=== PATIENT | male | born 1980 | race Caucasian/White ===

== ENCOUNTER 2017-09-20 01:47 | Inpatient (IN) | payer SELFPAY ==
[2017-09-20] VITALS (7 sets, daily range): BP systolic 116–175; BP diastolic 60–84; PULSE 75–91; RESP 16–19; TEMP 97.4–98.2; O2SAT 95–100
[~2017-09-20] VITALS: Ht 165.1 cm; Wt 87.0 kg
--- NOTE | 2017-09-20 04:52 | PD ---
HPI Chief Complaint: Flank/Kidney Pain Time Seen by Provider: 04:47 Travel History International Travel<30 days: No Contact w/Intl Traveler<30days: No Traveled to known affect area: No History of Present Illness HPI 37-year-old male presents to the emergency department by private transportation for complaint of left-sided abdominal pain and right lower quadrant abdominal pain for 3-4 days. No reported fever chills nausea vomiting hematemesis coffee- ground emesis melena hematochezia. Patient denies history of kidney stones. Patient admits to substance use and last alcohol use was 1 week ago. Patient is unable to identify exacerbating or alleviating factors. Patient notes his abdomen is tender and he knows that palpating the area does make the area more sensitive but he does not know other precipitating factors. Patient is taken no medication for symptom relief. Patient takes no routine medications or prescription medications. Patient denies any previous surgeries. No report of respiratory illness chest pain or shortness of breath. PFSH Past Medical History Narrative Medical Left hand surgery; alcohol use tobacco use substance use; nursing notes reviewed Tetanus Vaccination: Unknown Past Surgical History Other Surgery: Yes (L hand ) Social History Alcohol Use: Yes (rarely) Tobacco Use: Yes (1/2 PPD) Substance Use: Yes (Marijuana, Hx Heroin 2 months clean) Allergies-Medications (Allergen,Severity, Reaction): Coded Allergies: No Known Drug Allergies (Verified Allergy, Unknown, 09/20/17) Narrative Medication Denies medication use or prescription medications Review of Systems Except as stated in HPI: all other systems reviewed are Neg General / Constitutional: No: Fever, Chills HENT: No: Congestion Cardiovascular: No: Chest Pain or Discomfort Respiratory: No: Shortness of Breath Gastrointestinal: Positive: Abdominal Pain, No: Nausea, Diarrhea Genitourinary: Positive: Flank Pain Musculoskeletal: No: Myalgias, Arthralgias Skin: No Rash Neurologic: No: Weakness, Dizziness Psychiatric: No: Anxiety Hematologic/Lymphatic: No: Lymph Node Enlargement Physical Exam Narrative GENERAL: Well-developed well-nourished male no acute distress no respiratory distress SKIN: Warm and dry. HEAD: Normocephalic. EYES: No scleral icterus. No injection or drainage. NECK: Supple, trachea midline. No JVD or lymphadenopathy. CARDIOVASCULAR: Regular rate and rhythm without murmurs, gallops, or rubs. RESPIRATORY: Breath sounds equal bilaterally. No accessory muscle use. GASTROINTESTINAL: Abdomen soft, bilateral lower quadrant tenderness to palpation and left flank tender, nondistended. MUSCULOSKELETAL: No cyanosis, or edema. BACK: Nontender without obvious deformity. Left CVA tenderness. Data Data Last Documented VS Vital Signs Date Time Temp Pulse Resp B/P (MAP) Pulse Ox O2 Delivery O2 Flow Rate FiO2 09/20/17 07:45 81 18 146/81 (102) 98 Room Air 09/20/17 01:54 97.4 Orders Orders Complete Blood Count With Diff (09/20/17 04:48) Comprehensive Metabolic Panel (09/20/17 04:48) Lipase (09/20/17 04:48) Urinalysis - C+S If Indicated (09/20/17 04:48) Iv Access Insert/Monitor (09/20/17 04:48) Ecg Monitoring (09/20/17 04:48) Oximetry (09/20/17 04:48) Sodium Chloride 0.9% Flush (Ns Flush) (09/20/17 05:00) Drug Screen, Random Urine (09/20/17 04:48) Magnesium (Mg) (09/20/17 04:48) Sodium Chlor 0.9% 1000 Ml Inj (Ns 1000 M (09/20/17 05:00) Ct Abd/Pel W/O Iv Contrast (09/20/17 04:48) Sodium Chlor 0.9% 1000 Ml Inj (Ns 1000 M (09/20/17 07:45) Admit To Inpatient (09/20/17 ) Vital Signs (Adult) Q4H (09/20/17 08:11) Activity Oob With Assistance (09/20/17 08:11) Intake + Output VANESSA.QSHIFT (09/20/17 08:11) Sodium Chlor 0.9% 1000 Ml Inj (Ns 1000 M (09/20/17 08:11) Sodium Chloride 0.9% Flush (Ns Flush) (09/20/17 08:15) Sodium Chloride 0.9% Flush (Ns Flush) (09/20/17 09:00) Acetaminophen (Tylenol) (09/20/17 08:15) Metoclopramide Inj (Reglan Inj) (09/20/17 08:15) Basic Metabolic Panel (Bmp) (09/21/17 06:00) Complete Blood Count With Diff (09/21/17 06:00) Resp Oxygen Justyn C Titrat 1-4 L (09/20/17 ) Pt Request For Service (09/20/17 08:11) Case Management Consult (09/20/17 08:11) Scd Bilateral/Knee High VANESSA.BID (09/20/17 08:11) Basil Bilateral/Knee High VANESSA.QSHIFT (09/20/17 08:11) Naloxone Inj (Narcan Inj) (09/20/17 08:15) Docusate Sodium-Senna (Abigail-Colace) (09/20/17 09:00) Magnesium Hydroxide Liq (Milk Of Magnesi (09/20/17 08:15) Sennosides (Senokot) (09/20/17 08:15) Bisacodyl Supp (Dulcolax Supp) (09/20/17 08:15) Lactulose Liq (Lactulose Liq) (09/20/17 08:15) Inpatient Certification (09/20/17 ) Admit Order (Ed Use Only) (09/20/17 ) Checker Cashier / Telemetry VANESSA.Q8H (09/20/17 08:17) Diet Npo (09/20/17 Breakfast) Activity Bed Rest (09/20/17 08:17) Notify Dr: Other (09/20/17 08:17) Labs Laboratory Tests Test 09/20/17 05:00 09/20/17 06:45 White Blood Count 11.7 TH/MM3 Red Blood Count 6.45 MIL/MM3 Hemoglobin 16.5 GM/DL Hematocrit 51.1 % Mean Corpuscular Volume 79.1 FL Mean Corpuscular Hemoglobin 25.5 PG Mean Corpuscular Hemoglobin Concent 32.3 % Red Cell Distribution Width 17.3 % Platelet Count 211 TH/MM3 Mean Platelet Volume 8.4 FL Neutrophils (%) (Auto) 73.0 % Lymphocytes (%) (Auto) 17.9 % Monocytes (%) (Auto) 8.5 % Eosinophils (%) (Auto) 0.1 % Basophils (%) (Auto) 0.5 % Neutrophils # (Auto) 8.5 TH/MM3 Lymphocytes # (Auto) 2.1 TH/MM3 Monocytes # (Auto) 1.0 TH/MM3 Eosinophils # (Auto) 0.0 TH/MM3 Basophils # (Auto) 0.1 TH/MM3 CBC Comment DIFF FINAL Differential Comment Urine Color YELLOW Urine Turbidity HAZY Urine pH 5.0 Urine Specific [place] 1.015 Urine Protein 30 mg/dL Urine Glucose (UA) TRACE mg/dL Urine Ketones TRACE mg/dL Urine Occult Blood SMALL Urine Nitrite NEG Urine Bilirubin NEG Urine Urobilinogen LESS THAN 2.0 MG/DL Urine Leukocyte Esterase SMALL Urine RBC 31 /hpf Urine WBC 6 /hpf Urine Squamous Epithelial Cells 1 /hpf Urine Bacteria OCC /hpf Urine Hyaline Casts 152 /lpf Urine Granular Casts 14 /lpf Urine Waxy Casts 2 /lpf Urine Mucus FEW /lpf Microscopic Urinalysis Comment CULT NOT INDICATED Urine Opiates Screen POS Urine Barbiturates Screen NEG Urine Amphetamines Screen NEG Urine Benzodiazepines Screen NEG Urine Cocaine Screen POS Urine Cannabinoids Screen POS Blood Urea Nitrogen 62 MG/DL Creatinine 2.61 MG/DL Random Glucose 171 MG/DL Total Protein 9.0 GM/DL Albumin 4.6 GM/DL Calcium Level 8.6 MG/DL Magnesium Level 2.7 MG/DL Alkaline Phosphatase 75 U/L Aspartate Amino Transf (AST/SGOT) 72 U/L Alanine Aminotransferase (ALT/SGPT) 84 U/L Total Bilirubin 1.4 MG/DL Sodium Level 129 MEQ/L Potassium Level 4.3 MEQ/L Chloride Level 86 MEQ/L Carbon Dioxide Level 28.2 MEQ/L Anion Gap 15 MEQ/L Estimat Glomerular Filtration Rate 28 ML/MIN Lipase 132 U/L MDM Medical Decision Making Medical Screen Exam Complete: Yes Emergency Medical Condition: Yes Medical Record Reviewed: Yes Interpretation(s) CBC & BMP Diagram 09/20/17 05:00 09/20/17 06:45 Total Protein 9.0 H, Albumin 4.6, Calcium Level 8.6, Magnesium Level 2.7 H, Alkaline Phosphatase 75, Aspartate Amino Transf (AST/SGOT) 72 H, Alanine Aminotransferase (ALT/SGPT) 84 H, Total Bilirubin 1.4 H Vital Signs Date Time Temp Pulse Resp B/P (MAP) Pulse Ox O2 Delivery O2 Flow Rate FiO2 09/20/17 05:51 88 17 134/84 (101) 96 Room Air 09/20/17 05:33 17 95 Room Air 09/20/17 01:54 97.4 91 16 128/60 (82) 97 Urine drug screen positive for opiates cocaine and cannabinoids Last Impressions Abdomen/Pelvis CT 09/20/17 7598 Signed Impressions: CONCLUSION: 1. 1.4 cm low-density lesion within the left kidney most likely representing a simple cyst however it is incompletely characterized. Ultrasound should be con sidered for further evaluation. 2. No evidence of nephrolithiasis or obstructive uropathy. 3. No evidence of acute process. Differential Diagnosis Abdominal pain, diverticulitis, colitis, atypical appendicitis, renal colic, obstructive uropathy, UTI Narrative Course IV access obtained specimens collected and sent for resulting 1 L normal saline administered Additional liter of normal saline administered White cell count mildly elevated with elevated hemoglobin hematocrit consistent with volume contracture chemistries pending Chemistries resulted patient with elevated BUN and creatinine 62/2.61 with normal bicarb and anion gap mild elevation of serum glucose magnesium and transaminases Urine drug screen is positive for opiates cocaine and cannabis Call placed to [facility] for admission for new onset renal failure renal insufficiency and substance abuse; discussed with Dr. Nieves will admit to her service aware CT abdomen pelvis pending Physician Communication Physician Communication discussed with Dr Nieves =--admit Diagnosis Primary Impression: Abdominal pain Additional Impressions: MELANIE (acute kidney injury) Polysubstance abuse Hyponatremia Admitting Information Admitting Physician Requests: Admit Lety Lugo MD September 20, 2017 04:52
[2017-09-20] MEDS ORDERED: SODIUM CHLORIDE 0.9% FLUSH 10 ML FLUSH IV FLUSH PRN ×2 (05:00→08:15)
[2017-09-20] MEDS ORDERED: SODIUM CHLOR 0.9% 1000 ML INJ 1,000 ML IV ONE ×2 (05:00→07:45)
[2017-09-20 05:16] LABS: AUTOMATED NEUTROPHIL # 8.5 TH/MM3 (1.8-7.7); BASOPHIL # 0.1 TH/MM3 (0-0.2); BASOPHIL % 0.5 % (0.0-2.0); EOSINOPHIL % 0.1 % (0.0-4.0); HEMATOCRIT 51.1 % (39.0-51.0); HEMOGLOBIN 16.5 GM/DL (13.0-17.0); LYMPH % 17.9 % (9.0-44.0); LYMPHOCYTE # 2.1 TH/MM3 (1.0-4.8); MEAN CELL VOLUME 79.1 FL (80.0-100.0); MEAN CORPUSCULAR HEMOGLOBIN 25.5 PG (27.0-34.0); MEAN CORPUSCULAR HGB CONC 32.3 % (32.0-36.0); MEAN PLATELET VOLUME 8.4 FL (7.0-11.0); MONO % 8.5 % (0.0-8.0); PLATELET COUNT 211 TH/MM3 (150-450); RED BLOOD COUNT 6.45 MIL/MM3 (4.50-5.90); RED CELL DISTRIBUTION WIDTH 17.3 % (11.6-17.2); WHITE BLOOD COUNT 11.7 TH/MM3 (4.0-11.0)
[2017-09-20 05:33] LABS: BACTERIA, URINE OCC /hpf; BILIRUBIN, URINE NEG (NEG); BLOOD, URINE SMALL (NEG); GLUCOSE,URINE TRACE mg/dL (NEG); HYALINE CAST, URINE 152 /lpf (RARE); KETONE, URINE TRACE mg/dL (NEG); MUCUS URINE FEW /lpf (OCC); NITRITE,URINE NEG (NEG); SQUAMOUS EPITHELIAL CELL URINE 1 /hpf (0-5); URINE COLOR YELLOW (YELLW/STRAW); URINE LEUKOCYTE ESTERASE SMALL (NEG); WAXY CAST, URINE 2 /lpf
[2017-09-20 07:34] LABS: ALKALINE PHOSPHATASE 75 U/L (45-117); TOTAL BILIRUBIN ADULT 1.4 MG/DL (0.2-1.0)
[2017-09-20 07:35] LABS: ALBUMIN 4.6 GM/DL (3.4-5.0); ALT (GPT) 84 U/L (12-78); AST (GOT) 72 U/L (15-37); BICARBONATE 28.2 MEQ/L (21.0-32.0); BLOOD UREA NITROGEN 62 MG/DL (7-18); CALCIUM 8.6 MG/DL (8.5-10.1); CHLORIDE 86 MEQ/L (98-107); CREATININE 2.61 MG/DL (0.60-1.30); GLOMERULAR FILTRATION RATE 28 ML/MIN (>89); GLUCOSE,RANDOM 171 MG/DL (74-106); MAGNESIUM 2.7 MG/DL (1.5-2.5); SODIUM (NA) 129 MEQ/L (136-145)
[2017-09-20] MEDS ORDERED: LACTULOSE SYRUP 20 GM/30 ML CUP PO PRN (08:15)
[2017-09-20] MEDS ORDERED: BISACODYL 10 MG SUPP RECTAL PRN (08:15)
[2017-09-20] MEDS ORDERED: MAGNESIUM HYDROXIDE SUSP 30 ML CUP PO PRN (08:15)
[2017-09-20] MEDS ORDERED: ACETAMINOPHEN 325 MG TAB PO PRN (08:15)
[2017-09-20] MEDS ORDERED: SENNOSIDES 8.6 MG TAB PO PRN (08:15)
[2017-09-20] MEDS ORDERED: NALOXONE HCL 0.4 MG/ML AMP IV PUSH PRN (08:15)
--- NOTE | 2017-09-20 08:26 | RADRPT ---
EXAM DATE: 09/20/2017 8:01 AM EDT AGE/SEX: 37 years / Male INDICATIONS: Bilateral back/flank pain. CLINICAL DATA: This is the patient's initial encounter. Patient reports that signs and symptoms have been present for 1 week and indicates a pain score of 8/10. MEDICAL/SURGICAL HISTORY: None. None. RADIATION DOSE: 6.96 CTDI (mGy) COMPARISON: No prior [facility] exams available for comparison. TECHNIQUE: Multiple contiguous axial images were obtained through the abdomen. Images were obtained using multiple row detector helical technique. Using dose reduction techniques, radiation dose was ke pt as low as reasonably achievable to obtain optimal diagnostic quality images. FINDINGS: Lower Lungs: The visualized lower lungs are clear. Liver: The liver has a homogeneous density without space-occupying lesion. Benign-appearing central c alcific deposits are identified in the liver. There is no dilation of the biliary tree. Spleen: Homogeneous density without enlargement. Pancreas: Unremarkable without mass or calcification. Kidneys: A low density lesion measuring approximately 1.4 cm is identified in the anterior aspect of the mid left kidney. Kidneys are otherwise unremarkable. There is no evidence of nephrolithiasis or hydronephrosis. Adrenal Glands: Unremarkable. Aorta: The aorta and proximal iliac vessels are grossly unremarkable without aneurysmal dilation. Bowel/Mesentery: The bowel loops are grossly unremarkable. The cecum and sigmoid colon have a normal configuration. Abdominal Wall: Intact. Retroperitoneum: No evidence of adenopathy in the retrocrural, para-aortic, or deep pelvic regions. Bladder: Contours are smooth. Reproductive Organs: No abnormal masses or calcifications seen. Inguinal: The inguinal region is unremarkable without evidence of adenopathy. Bony Structures: Unremarkable. CONCLUSION: 1. 1.4 cm low-density lesion within the left kidney most likely representing a simple cyst however i t is incompletely characterized. Ultrasound should be considered for further evaluation. 2. No evidence of nephrolithiasis or obstructive uropathy. 3. No evidence of acute process. Electronically signed by: Feliciano Heath MD 09/20/2017 8:24 AM EDT
--- NOTE | 2017-09-20 09:22 | HHI.HP ---
[facility] Primary Care Physician No Primary Care Physician Admission Diagnosis abdominal pain; melanie; polysubstance abuse; hyponatremia Diagnoses: Chief Complaint: abd pain Travel History International Travel<30 Days: No Contact w/Intl Traveler <30 Da: No Traveled to Known Affected Are: No History of Present Illness 37-year-old male presents to the emergency department by private transportation for complaint of left-sided abdominal pain and right lower quadrant abdominal pain for 3-4 days. No reported fever chills nausea vomiting hematemesis coffee- ground emesis melena hematochezia. Patient denies history of kidney stones. Patient admits to substance use and last alcohol use was 1 week ago. Patient is unable to identify exacerbating or alleviating factors. Patient notes his abdomen is tender and he knows that palpating the area does make the area more sensitive but he does not know other precipitating factors. Patient is taken no medication for symptom relief. Patient takes no routine medications or prescription medications. Patient denies any previous surgeries. No report of respiratory illness chest pain or shortness of breath. Review of Systems ROS Limitations: Clinical Condition, Intoxication, Poor Historian Except as stated in HPI: all other systems reviewed are Neg Past Family Social History Past Medical History IVDA Past Surgical History Left hand surgery; alcohol use tobacco use substance use; nursing notes reviewed Allergies: Coded Allergies: No Known Drug Allergies (Verified Allergy, Unknown, 09/20/17) Family History healthy family Social History Alcohol Use: Yes (rarely) Tobacco Use: Yes (1/2 PPD) Substance Use: Yes (Marijuana, Hx Heroin 2 months clean). Urine drug screen is positive for opiates cocaine and cannabis on this admission. Physical Exam Vital Signs Vital Signs Date Time Temp Pulse Resp B/P (MAP) Pulse Ox O2 Delivery O2 Flow Rate FiO2 09/20/17 07:45 81 18 146/81 (102) 98 Room Air 09/20/17 05:51 88 17 134/84 (101) 96 Room Air 09/20/17 05:33 17 95 Room Air 09/20/17 01:54 97.4 91 16 128/60 (82) 97 Physical Exam GENERAL: This is a well-nourished, well-developed patient, sleepy. SKIN: No rashes, ecchymoses or lesions. Cool and dry. HEAD: Atraumatic. Normocephalic. No temporal or scalp tenderness. EYES: Pupils equal round and reactive. Extraocular motions intact. No scleral icterus. No injection or drainage. ENT: Nose without bleeding, purulent drainage or septal hematoma. Throat without erythema, tonsillar hypertrophy or exudate. Uvula midline. Airway patent. NECK: Trachea midline. No JVD or lymphadenopathy. Supple, nontender, no meningeal signs. CARDIOVASCULAR: Regular rate and rhythm without murmurs, gallops, or rubs. RESPIRATORY: Clear to auscultation. Breath sounds equal bilaterally. No wheezes , rales, or rhonchi. GASTROINTESTINAL: Abdomen soft, non-tender, nondistended. No hepato-splenomegaly , or palpable masses. No guarding. MUSCULOSKELETAL: Extremities without clubbing, cyanosis, or edema. No joint tenderness, effusion, or edema noted. No calf tenderness. Negative Homans sign bilaterally. NEUROLOGICAL: Awake and alert. Cranial nerves II through XII intact. Motor and sensory grossly within normal limits. Five out of 5 muscle strength in all muscle groups. Normal speech. Laboratory Laboratory Tests Test 09/20/17 05:00 09/20/17 06:45 White Blood Count 11.7 Red Blood Count 6.45 Hemoglobin 16.5 Hematocrit 51.1 Mean Corpuscular Volume 79.1 Mean Corpuscular Hemoglobin 25.5 Mean Corpuscular Hemoglobin Concent 32.3 Red Cell Distribution Width 17.3 Platelet Count 211 Mean Platelet Volume 8.4 Neutrophils (%) (Auto) 73.0 Lymphocytes (%) (Auto) 17.9 Monocytes (%) (Auto) 8.5 Eosinophils (%) (Auto) 0.1 Basophils (%) (Auto) 0.5 Neutrophils # (Auto) 8.5 Lymphocytes # (Auto) 2.1 Monocytes # (Auto) 1.0 Eosinophils # (Auto) 0.0 Basophils # (Auto) 0.1 CBC Comment DIFF FINAL Differential Comment Urine Color YELLOW Urine Turbidity HAZY Urine pH 5.0 Urine Specific [place] 1.015 Urine Protein 30 Urine Glucose (UA) TRACE Urine Ketones TRACE Urine Occult Blood SMALL Urine Nitrite NEG Urine Bilirubin NEG Urine Urobilinogen LESS THAN 2.0 Urine Leukocyte Esterase SMALL Urine RBC 31 Urine WBC 6 Urine Squamous Epithelial Cells 1 Urine Bacteria OCC Urine Hyaline Casts 152 Urine Granular Casts 14 Urine Waxy Casts 2 Urine Mucus FEW Microscopic Urinalysis Comment CULT NOT INDICATED Urine Opiates Screen POS Urine Barbiturates Screen NEG Urine Amphetamines Screen NEG Urine Benzodiazepines Screen NEG Urine Cocaine Screen POS Urine Cannabinoids Screen POS Blood Urea Nitrogen 62 Creatinine 2.61 Random Glucose 171 Total Protein 9.0 Albumin 4.6 Calcium Level 8.6 Magnesium Level 2.7 Alkaline Phosphatase 75 Aspartate Amino Transf (AST/SGOT) 72 Alanine Aminotransferase (ALT/SGPT) 84 Total Bilirubin 1.4 Sodium Level 129 Potassium Level 4.3 Chloride Level 86 Carbon Dioxide Level 28.2 Anion Gap 15 Estimat Glomerular Filtration Rate 28 Lipase 132 Result Diagram: 09/20/17 0500 09/20/17 0645 Imaging Last Impressions Abdomen/Pelvis CT 09/20/17 3351 Signed Impressions: CONCLUSION: 1. 1.4 cm low-density lesion within the left kidney most likely representing a simple cyst however it is incompletely characterized. Ultrasound should be con sidered for further evaluation. 2. No evidence of nephrolithiasis or obstructive uropathy. 3. No evidence of acute process. Caprini VTE Risk Assessment Caprini VTE Risk Assessment: No/Low Risk (score <= 1) Caprini Risk Assessment Model Point Value = 1 Point Value = 2 Point Value = 3 Point Value = 5 Age 41-60 Minor surgery BMI > 25 kg/m2 Swollen legs Varicose veins or History of unexplained or recurrent spontaneous Oral contraceptives or hormone replacement Sepsis (< 1 month) Serious lung disease, including pneumonia (< 1 month) Abnormal pulmonary function Acute myocardial infarction Congestive heart failure (< 1 month) History of inflammatory bowel disease Medical patient at bed rest Age 61-74 Arthroscopic surgery Major open surgery (> 45 min) Laparoscopic surgery (> 45 min) Malignancy Confined to bed (> 72 hours) Immobilizing plaster cast Central venous access Age >= 75 History of VTE Family history of VTE Factor V Leiden Prothrombin [id number] Lupus anticoagulant Anticardiolipin antibodies Elevated serum homocysteine Heparin-induced thrombocytopenia Other congenital or acquired thrombophilia Stroke (< 1 month) Elective arthroplasty Hip, pelvis, or leg fracture Acute spinal cord injury (< 1 month) Prophylaxis Regimen Total Risk Factor Score Risk Level Prophylaxis Regimen 0-1 Low Early ambulation 2 Moderate Order ONE of the following: *Sequential Compression Device (SCD) *Heparin 5000 units SQ BID 3-4 Higher Order ONE of the following medications: *Heparin 5000 units SQ TID *Enoxaparin/Lovenox 40 mg SQ daily (WT < 150 kg, CrCl > 30 mL/min) *Enoxaparin/Lovenox 30 mg SQ daily (WT < 150 kg, CrCl > 10-29 mL/min) *Enoxaparin/Lovenox 30 mg SQ BID (WT < 150 kg, CrCl > 30 mL/min) AND/OR *Sequential Compression Device (SCD) 5 or more Highest Order ONE of the following medications: *Heparin 5000 units SQ TID (Preferred with Epidurals) *Enoxaparin/Lovenox 40 mg SQ daily (WT < 150 kg, CrCl > 30 mL/min) *Enoxaparin/Lovenox 30 mg SQ daily (WT < 150 kg, CrCl > 10-29 mL/min) *Enoxaparin/Lovenox 30 mg SQ BID (WT < 150 kg, CrCl > 30 mL/min) AND *Sequential Compression Device (SCD) Assessment and Plan Assessment and Plan Abdominal pain MELANIE (acute kidney injury) Polysubstance abuse. Counselled. Urine drug screen is positive for opiates cocaine and cannabis Hyponatremia Elevated BUN and creatinine 62/2.61 with normal bicarb and anion gap mild elevation of serum glucose magnesium and transaminases. Urine drug screen is positive for opiates cocaine and cannabis CT A/P reviewed shows 1.4 cm low density lesion left kidney suggesting simple cyst. Start Aggressive IVF at 150 cc /h Monitopr Na closely for overcorrection Monitor kidney function Avoid nephrotoxins DVT ppx ambulation Discussed Condition With pt, nurse ED physician Physician Certification 2 Midnight Certification Type: Admission for Inpatient Services Order for Inpatient Services The services are ordered in accordance with Medicare regulations or non- Medicare payer requirements, as applicable. In the case of services not specified as inpatient-only, they are appropriately provided as inpatient services in accordance with the 2-midnight benchmark. Estimated LOS (days): 3 days is the estimated time the patient will need to remain in the hospital, assuming treatment plan goals are met and no additional complications. Post-Hospital Plan: Home Cynthia Nieves MD September 20, 2017 09:22
[2017-09-20] MEDS: SODIUM CHLORIDE 0.9% FLUSH 10 ML FLUSH IV FLUSH SCH ×2 (09:38→21:00)
[2017-09-20] MEDS: SODIUM CHLOR 0.9% 1000 ML INJ 1,000 ML IV SCH ×3 (09:38→22:51)
[2017-09-20] MEDS: DOCUSATE SODIUM 50 MG/SENNA 8.6 MG TAB PO SCH ×2 (09:38→21:19)
[2017-09-20 10:45] LABS: ALBUMIN 4.3 GM/DL (3.4-5.0); ALKALINE PHOSPHATASE 70 U/L (45-117); ALT (GPT) 74 U/L (12-78); AST (GOT) 57 U/L (15-37); BICARBONATE 28.9 MEQ/L (21.0-32.0); BLOOD UREA NITROGEN 51 MG/DL (7-18); CALCIUM 8.3 MG/DL (8.5-10.1); CHLORIDE 91 MEQ/L (98-107); CREATININE 1.89 MG/DL (0.60-1.30); GLOMERULAR FILTRATION RATE 40 ML/MIN (>89); GLUCOSE,RANDOM 148 MG/DL (74-106); SODIUM (NA) 132 MEQ/L (136-145); TOTAL BILIRUBIN ADULT 1.5 MG/DL (0.2-1.0); TOTAL PROTEIN 8.1 GM/DL (6.4-8.2)
[2017-09-20 13:50] LABS: % SATURATION IRON PROFILE 14.8 % (20-50); IRON (FE) 67 MCG/DL (65-175); TOTAL IRON BINDING CAPACITY 454 MCG/DL (250-450)
[2017-09-20 14:15] LABS: FERRITIN 222 NG/ML (26-388)
[2017-09-20 14:16] LABS: FOLATE GREATER THAN 20.0 NG/ML (3.1-17.5)
[2017-09-20] MEDS: METOCLOPRAMIDE HCL 10 MG/2 ML VIAL IV PUSH PRN (21:19)
[2017-09-21 00:50] VITALS: BP 115/66; PULSE 88; RESP 16; TEMP 97; O2SAT 96
[2017-09-21 03:45] VITALS: BP 112/63; PULSE 80; RESP 18; TEMP 97.3; O2SAT 98
[2017-09-21 04:47] LABS: BASOPHIL % 0.3 % (0.0-2.0); EOSINOPHIL % 0.6 % (0.0-4.0); HEMATOCRIT 41.2 % (39.0-51.0); HEMOGLOBIN 13.5 GM/DL (13.0-17.0); LYMPH % 35.2 % (9.0-44.0); LYMPHOCYTE # 2.6 TH/MM3 (1.0-4.8); MEAN CELL VOLUME 79.2 FL (80.0-100.0); MEAN CORPUSCULAR HEMOGLOBIN 25.9 PG (27.0-34.0); MEAN CORPUSCULAR HGB CONC 32.7 % (32.0-36.0); MEAN PLATELET VOLUME 8.1 FL (7.0-11.0); MONO % 9.6 % (0.0-8.0); MONOCYTE # 0.7 TH/MM3 (0-0.9); NEUT % 54.3 % (16.0-70.0); PLATELET COUNT 164 TH/MM3 (150-450); RED CELL DISTRIBUTION WIDTH 16.8 % (11.6-17.2); WHITE BLOOD COUNT 7.4 TH/MM3 (4.0-11.0)
[2017-09-21 05:06] LABS: BICARBONATE 30.2 MEQ/L (21.0-32.0); CALCIUM 8.4 MG/DL (8.5-10.1); CREATININE 0.93 MG/DL (0.60-1.30)
[2017-09-21] MEDS: SODIUM CHLOR 0.9% 1000 ML INJ 1,000 ML IV SCH ×2 (06:10→11:28)
[2017-09-21 08:22] VITALS: BP 130/70; PULSE 69; RESP 18; TEMP 98; O2SAT 97
[2017-09-21] MEDS: SODIUM CHLORIDE 0.9% FLUSH 10 ML FLUSH IV FLUSH SCH ×2 (09:00→21:00)
[2017-09-21] MEDS: DOCUSATE SODIUM 50 MG/SENNA 8.6 MG TAB PO SCH ×2 (09:46→21:00)
[2017-09-21 11:09] LABS: ALBUMIN 3.2 GM/DL (3.4-5.0); ALKALINE PHOSPHATASE 55 U/L (45-117); ALT (GPT) 59 U/L (12-78); AST (GOT) 49 U/L (15-37); BICARBONATE 29.4 MEQ/L (21.0-32.0); BLOOD UREA NITROGEN 16 MG/DL (7-18); CALCIUM 8.3 MG/DL (8.5-10.1); CHLORIDE 100 MEQ/L (98-107); CREATININE 0.83 MG/DL (0.60-1.30); GLOMERULAR FILTRATION RATE 104 ML/MIN (>89); GLUCOSE,RANDOM 175 MG/DL (74-106); SODIUM (NA) 136 MEQ/L (136-145); TOTAL BILIRUBIN ADULT 1.6 MG/DL (0.2-1.0); TOTAL PROTEIN 6.6 GM/DL (6.4-8.2)
[2017-09-21 11:45] VITALS: BP 118/71; PULSE 70; RESP 18; TEMP 97.9; O2SAT 97
[2017-09-21 16:13] VITALS: BP 140/61; PULSE 58; RESP 18; TEMP 97.5; O2SAT 97
--- NOTE | 2017-09-21 16:57 | HHI.PR ---
Subjective Remarks f/u abd pain still with severe L flank, anterior abdominal wall pain, no fever, no n/v, no diarrhea. Good oral intake Objective Vitals Vital Signs Date Time Temp Pulse Resp B/P (MAP) Pulse Ox O2 Delivery O2 Flow Rate FiO2 09/21/17 16:13 97.5 58 18 140/61 (87) 97 09/21/17 11:45 97.9 70 18 118/71 (87) 97 09/21/17 08:22 98.0 69 18 130/70 (90) 97 09/21/17 03:45 97.3 80 18 112/63 (79) 98 09/21/17 00:50 97.0 88 16 115/66 (82) 96 09/20/17 20:30 98.0 80 16 116/77 (90) 95 09/20/17 18:00 98.2 75 19 123/80 (94) 96 I/O 09/20/17 09/20/17 09/20/17 09/21/17 09/21/17 09/21/17 06:59 14:59 22:59 06:59 14:59 22:59 Intake Total 1000 ml 1711 ml Output Total 1200 ml Balance -200 ml 1711 ml Intake Oral 1000 ml IV Total 1711 ml Output Urine Total 1200 ml # Bowel Movements 0 Result Diagram: 09/21/17 0345 09/21/17 1010 Imaging Last Impressions Abdomen/Pelvis CT 09/20/17 0448 Signed Impressions: CONCLUSION: 1. 1.4 cm low-density lesion within the left kidney most likely representing a simple cyst however it is incompletely characterized. Ultrasound should be con sidered for further evaluation. 2. No evidence of nephrolithiasis or obstructive uropathy. 3. No evidence of acute process. Objective Remarks Not in distress, well-nourished, looks stated age PERRL Normal rate and regular rhythm, no murmurs gallops or rubs appreciated. Clear to auscultation and symmetric bilaterally, normal respiratory effort. Normal bowel sounds, soft, tender on anterior abdominal wall, LLQ superficially and very tender even with superficial palpation Extremities without clubbing, cyanosis, or edema. AAO x3, no cranial nerve deficits, moves all 4 extremities, no focal neurologic deficits A/P Assessment and Plan This is a 37-year-old male presenting with abdominal pain Abdominal pain-CT scan of the abdomen unremarkable other than a small left renal cyst which should not be causing his pain.. Reviewed with Dr. Heath again today, there is nothing in the subcutaneous or anterior abdominal wall. Continue pain control. Acute renal failure-resolved, continue IVF Hyponatremia-resolved Polysubstance abuse-counseled DVT ppx ambulation, low risk Possible discharge tomorrow. Mar Buck MD September 21, 2017 16:57
[2017-09-21] MEDS ORDERED: IBUPROFEN 400 MG TAB PO PRN (17:00)
[2017-09-21] MEDS ORDERED: ACETAMINOPHEN/HYDROcodone 325 MG/10 MG TAB PO PRN (17:00)
[2017-09-21] MEDS ORDERED: NALOXONE HCL 0.4 MG/ML AMP IV PUSH PRN (17:00)
[2017-09-21] MEDS ORDERED: ACETAMINOPHEN/HYDROcodone 325 MG/5 MG TAB PO PRN (17:00)
[2017-09-21] MEDS: METOCLOPRAMIDE HCL 10 MG/2 ML VIAL IV PUSH PRN (18:47)
[2017-09-21 20:00] VITALS: BP 132/63; PULSE 64; RESP 18; TEMP 97.7; O2SAT 98
[2017-09-22 00:49] VITALS: BP 126/63; PULSE 68; RESP 18; TEMP 98.2; O2SAT 97
[2017-09-22 05:21] VITALS: BP 136/79; PULSE 60; RESP 18; TEMP 98.7; O2SAT 98
[2017-09-22 07:56] VITALS: BP 118/70; PULSE 55; RESP 17; TEMP 98.4; O2SAT 99
[2017-09-22] MEDS: DOCUSATE SODIUM 50 MG/SENNA 8.6 MG TAB PO SCH (07:56)
[2017-09-22] MEDS: SODIUM CHLORIDE 0.9% FLUSH 10 ML FLUSH IV FLUSH SCH (07:56)
[2017-09-22] MEDS ORDERED: IBUP1TAB5 PO (09:58)
--- NOTE | 2017-09-22 13:41 | HHI.DS ---
Discharge Summary Admission Date September 20, 2017 at 08:20 Discharge Date: September 22, 2017 Admitting Diagnosis abdominal pain; hal; polysubstance abuse; hyponatremia (1) ARF (acute renal failure) ICD Code: N17.9 - Acute kidney failure, unspecified (2) Abdominal pain ICD Code: R10.9 - Unspecified abdominal pain Procedures none Brief History - From Admission 37-year-old male presents to the emergency department by private transportation for complaint of left-sided abdominal pain and right lower quadrant abdominal pain for 3-4 days. No reported fever chills nausea vomiting hematemesis coffee- ground emesis melena hematochezia. Patient denies history of kidney stones. Patient admits to substance use and last alcohol use was 1 week ago. Patient is unable to identify exacerbating or alleviating factors. Patient notes his abdomen is tender and he knows that palpating the area does make the area more sensitive but he does not know other precipitating factors. Patient is taken no medication for symptom relief. Patient takes no routine medications or prescription medications. Patient denies any previous surgeries. No report of respiratory illness chest pain or shortness of breath. CBC/BMP: 09/21/17 0345 09/21/17 1010 Significant Findings Laboratory Tests Test 09/20/17 05:00 09/20/17 06:45 09/20/17 10:18 09/21/17 03:45 White Blood Count 11.7 TH/MM3 (4.0-11.0) Red Blood Count 6.45 MIL/MM3 (4.50-5.90) Hematocrit 51.1 % (39.0-51.0) Mean Corpuscular Volume 79.1 FL (80.0-100.0) 79.2 FL (80.0-100.0) Mean Corpuscular Hemoglobin 25.5 PG (27.0-34.0) 25.9 PG (27.0-34.0) Red Cell Distribution Width 17.3 % (11.6-17.2) Neutrophils (%) (Auto) 73.0 % (16.0-70.0) Monocytes (%) (Auto) 8.5 % (0.0-8.0) 9.6 % (0.0-8.0) Neutrophils # (Auto) 8.5 TH/MM3 (1.8-7.7) Monocytes # (Auto) 1.0 TH/MM3 (0-0.9) Urine Turbidity HAZY (CLEAR) Urine Protein 30 mg/dL (NEG-TRACE) Urine Ketones TRACE mg/dL (NEG) Urine Occult Blood SMALL (NEG) Urine Leukocyte Esterase SMALL (NEG) Urine RBC 31 /hpf (0-3) Urine WBC 6 /hpf (0-5) Urine Bacteria OCC /hpf (NONE) Urine Mucus FEW /lpf (OCC) Urine Opiates Screen POS (NEG) Urine Cocaine Screen POS (NEG) Urine Cannabinoids Screen POS (NEG) Blood Urea Nitrogen 62 MG/DL (7-18) 51 MG/DL (7-18) 22 MG/DL (7-18) Creatinine 2.61 MG/DL (0.60-1.30) 1.89 MG/DL (0.60-1.30) Random Glucose 171 MG/DL (74-106) 148 MG/DL (74-106) 170 MG/DL (74-106) Total Protein 9.0 GM/DL (6.4-8.2) Magnesium Level 2.7 MG/DL (1.5-2.5) Aspartate Amino Transf (AST/SGOT) 72 U/L (15-37) 57 U/L (15-37) Alanine Aminotransferase (ALT/SGPT) 84 U/L (12-78) Total Bilirubin 1.4 MG/DL (0.2-1.0) 1.5 MG/DL (0.2-1.0) Sodium Level 129 MEQ/L (136-145) 132 MEQ/L (136-145) 135 MEQ/L (136-145) Chloride Level 86 MEQ/L (98-107) 91 MEQ/L (98-107) Estimat Glomerular Filtration Rate 28 ML/MIN (>89) 40 ML/MIN (>89) Calcium Level 8.3 MG/DL (8.5-10.1) 8.4 MG/DL (8.5-10.1) Potassium Level 3.3 MEQ/L (3.5-5.1) Total Iron Binding Capacity 454 MCG/DL (250-450) Percent Iron Saturation 14.8 % (20-50) Folate GREATER THAN 20.0 NG/ML Test 09/21/17 10:10 Random Glucose 175 MG/DL (74-106) Albumin 3.2 GM/DL (3.4-5.0) Calcium Level 8.3 MG/DL (8.5-10.1) Aspartate Amino Transf (AST/SGOT) 49 U/L (15-37) Total Bilirubin 1.6 MG/DL (0.2-1.0) Imaging Last Impressions Abdomen/Pelvis CT 09/20/17 9818 Signed Impressions: CONCLUSION: 1. 1.4 cm low-density lesion within the left kidney most likely representing a simple cyst however it is incompletely characterized. Ultrasound should be con sidered for further evaluation. 2. No evidence of nephrolithiasis or obstructive uropathy. 3. No evidence of acute process. PE at Discharge Not in distress, well-nourished, looks stated age PERRL Normal rate and regular rhythm, no murmurs gallops or rubs appreciated. Clear to auscultation and symmetric bilaterally, normal respiratory effort. Normal bowel sounds, soft, tender on anterior abdominal wall, LLQ superficially and very tender even with superficial palpation Extremities without clubbing, cyanosis, or edema. AAO x3, no cranial nerve deficits, moves all 4 extremities, no focal neurologic deficits Pt update on day of discharge No overnight events, left lower quadrant abdominal pain a lot better, almost gone. No nausea or vomiting. No diarrhea. Afebrile. Hospital Course This is a 37-year-old male presenting with abdominal pain. Patient was found to be in acute renal failure which improved with volume resuscitation. For his abdominal pain,CT scan of the abdomen unremarkable other than a small left renal cyst which should not be causing his pain.. Reviewed with Dr. Heath again , there is nothing in the subcutaneous or anterior abdominal wall. Continue pain control. May discharge today, pain has improved, follow-up with primary care physician. Pt Condition on Discharge: Good Discharge Disposition: Discharge Home Discharge Time: > 30 minutes Discharge Instructions DIET: Follow Instructions for: As Tolerated, No Restrictions Activities you can perform: Regular-No Restrictions Follow up Referrals: PCP Follow-up - 2 Weeks New Medications: Ibuprofen (Ibuprofen) 400 Mg Tab 400 MG PO Q6H PRN for PAIN SCALE 1 TO 2, #60 TAB Cielo,Thendrex MD September 22, 2017 13:41
== END 2017-09-22 11:04 | disposition home or self-care (01) | DRG 683 ==
LOC: NEPC 01:47 → NEDA 08:20 → N05B 16:18
PROVIDERS: ADMIT Hospitalist; ATTEND Hospitalist
DX: N17.9 Acute kidney failure, unspecified (principal); E87.1 Hypo-osmolality and hyponatremia; R10.31 Right lower quadrant pain; N28.1 Cyst of kidney, acquired; F19.10 Other psychoactive substance abuse, uncomplicated; Z72.0 Tobacco use
CPT/HCPCS: 74176; 80048; 80053; 80307; 81001; 82607; 82728; 82746; 83540; 83550; 83690; 83735; 85025; 96360; 96361; J2765; J7030

== ENCOUNTER 2017-10-01 01:10 | Inpatient (IN) | payer SELFPAY ==
[2017-10-01] VITALS (8 sets, daily range): BP systolic 111–137; BP diastolic 61–78; PULSE 77–104; RESP 15–20; TEMP 96.7–98.2; O2SAT 95–99
[~2017-10-01 01:10] MED LIST: IBUP1TAB5 PO
[2017-10-01 03:44] LABS: AUTOMATED NEUTROPHIL # 10.6 TH/MM3 (1.8-7.7); BASOPHIL % 0.4 % (0.0-2.0); HEMOGLOBIN 15.9 GM/DL (13.0-17.0); LYMPH % 10.6 % (9.0-44.0); LYMPHOCYTE # 1.3 TH/MM3 (1.0-4.8); MEAN CELL VOLUME 79.1 FL (80.0-100.0); MEAN CORPUSCULAR HEMOGLOBIN 25.2 PG (27.0-34.0); MEAN CORPUSCULAR HGB CONC 31.9 % (32.0-36.0); MEAN PLATELET VOLUME 7.9 FL (7.0-11.0); MONO % 3.2 % (0.0-8.0); MONOCYTE # 0.4 TH/MM3 (0-0.9); NEUT % 85.8 % (16.0-70.0); PLATELET COUNT 263 TH/MM3 (150-450); RED BLOOD COUNT 6.32 MIL/MM3 (4.50-5.90); RED CELL DISTRIBUTION WIDTH 16.2 % (11.6-17.2); WHITE BLOOD COUNT 12.3 TH/MM3 (4.0-11.0)
--- NOTE | 2017-10-01 03:44 | PD ---
HPI Chief Complaint: Abdominal Pain Time Seen by Provider: 02:45 Travel History International Travel<30 days: No Contact w/Intl Traveler<30days: No Traveled to known affect area: No History of Present Illness HPI The patient is a 37 year old female who presents to the [facility] emergency department with a history of abdominal pain and he reports is been coming and going for the last 2 weeks. The patient reports that he was admitted to the hospital on September 20 related to this pain. He is unsure what he was diagnosed with. The patient does have a history of IV drug use. He reports that he last used hydrocodone for pain a few days ago. The patient denies using any amphetamines or cocaine. The patient denies using any recent heroin the patient denies having any known recent fevers. The patient reports that the pain moves around his abdomen. He reports that he last moved his bowels yesterday. He denies having any blood in his stool. He denies having any black or tarry stools. He reports that he has had nausea and vomiting 8-9 times associated with this over the last 24 hours. He reports having darkening of his urine. He reports having decreased urine output. He reports that the pain is a squeezing sensation. He denies having any known alleviating or aggravating factors. He denies having any prior history of kidney stones. He reports that he sometimes also has bilateral flank pain associated with this. He denies having any history of hepatitis. On review of systems otherwise, the patient denies having any cough or congestion, neck pain, chest pain, shortness of breath, diarrhea, dysuria, urinary urgency, or neurologic symptoms. [facility] Past Medical History Narrative Medical The patient's past medical history is significant for IV drug use, elevated liver enzymes on his last hospital admission, renal insufficiency on his last hospitalization. Anxiety: No Depression: Yes Cancer: No Cardiovascular Problems: No Endocrine: No Genitourinary: No Musculoskeletal: No Neurologic: No Psychiatric: Yes Respiratory: No Past Surgical History Narrative Surgical The patient's past surgical history is significant for jaw surgery related to a fracture, history of left hand surgery. Oral Surgery: Yes (jaw surgery) Other Surgery: Yes (L hand ) Social History Alcohol Use: Yes (rarely) Tobacco Use: Yes (1/2 PPD) Substance Use: Yes (Marijuana, Hx Heroin 2 months clean, last use hydrocodone a few days ago) Allergies-Medications (Allergen,Severity, Reaction): Coded Allergies: No Known Drug Allergies (Verified Allergy, Unknown, 10/01/17) Reported Meds & Prescriptions Reported Meds & Active Scripts Active Ibuprofen 400 Mg Tab 400 Mg PO Q6H PRN Review of Systems Except as stated in HPI: all other systems reviewed are Neg General / Constitutional: No: Fever Eyes: No: Visual changes HENT: No: Headaches Cardiovascular: No: Chest Pain or Discomfort, Dyspnea on exertion Respiratory: No: Shortness of Breath Gastrointestinal: Positive: Nausea, Vomiting, Abdominal Pain, Indigestion, Loss of Appetite, No: Diarrhea, Hematemesis, Hematochezia, Changes in Bowel Habits Genitourinary: Positive: Flank Pain, No: Dysuria Musculoskeletal: No: Pain Skin: No Rash Neurologic: No: Weakness, Focal Abnormalities, Change in Mentation, Slurred Speech, Sensory Disturbance Psychiatric: No: Depression Endocrine: No: Polydipsia Hematologic/Lymphatic: No: Easy Bruising Physical Exam Narrative General: The patient is a well-developed well-nourished male, uncomfortable appearing on my arrival to the room, pacing the room. Head and Neck exam: Head is normocephalic atraumatic. Eyes: EOMI, pupils are equal round and reactive to light. Nose: Midline septum with pink mucous membranes Mouth: Dentition unremarkable. Moist mucus membranes. Posterior oropharynx is not erythematous. No tonsillar hypertrophy. Uvula midline. Airway patent. Neck: No palpable lymphadenopathy. No nuchal rigidity. No thyromegaly. Cardiovascular: Regular rate and rhythm without murmurs, gallops, or rubs. No pulse deficit to the extremities on simultaneous auscultation and palpation of his radial artery. Lungs: Clear to auscultation bilaterally. No wheezes, rhonchi, or rales. Abdomen: Soft, with reported tenderness on palpation of the right upper quadrant and midepigastric area. Negative Dawkins sign. Normal bowel sounds are audible. No tenderness on palpation of McBurney's point. No guarding, rebound, or rigidity. Extremities: No clubbing, cyanosis, or edema. 2+ pulses in all 4 extremities. No calf tenderness on palpation. Back: No spinous process tenderness to palpation. The patient reports bilateral CVA tenderness on palpation worse on the left compared to the right. Neurologic Exam: Grossly nonfocal. Skin Exam: No rash noted. Intact skin that is warm and dry. Data Data Last Documented VS Vital Signs Date Time Temp Pulse Resp B/P (MAP) Pulse Ox O2 Delivery O2 Flow Rate FiO2 10/01/17 06:25 92 16 132/78 (96) 99 Room Air 10/01/17 03:32 97.9 Orders Orders Complete Blood Count With Diff (10/01/17 03:10) Comprehensive Metabolic Panel (10/01/17 03:10) Prothrombin Time / Inr (Pt) (10/01/17 03:10) Act Partial Throm Time (Ptt) (10/01/17 03:10) C-Reactive Protein (Crp) (10/01/17 03:10) Lipase (10/01/17 03:10) Urinalysis - C+S If Indicated (10/01/17 03:10) Magnesium (Mg) (10/01/17 03:10) Iv Access Insert/Monitor (10/01/17 03:10) Ecg Monitoring (10/01/17 03:10) Oximetry (10/01/17 03:10) Sodium Chlor 0.9% 1000 Ml Inj (Ns 1000 M (10/01/17 03:45) Prochlorperazine Inj (Compazine Inj) (10/01/17 03:45) Hydromorphone Pf Inj (Dilaudid Pf Inj) (10/01/17 03:45) Urine Culture (10/01/17 03:30) Ct Abd/Pel W/O Iv Contrast (10/01/17 04:37) Sodium Chlor 0.9% 1000 Ml Inj (Ns 1000 M (10/01/17 04:45) Piperacil-Tazo 3.375 Gm Premix (Zosyn 3. (10/01/17 04:45) Vancomycin Inj (Vancomycin Inj) (10/01/17 04:45) Ceftriaxone Inj (Rocephin Inj) (10/01/17 11:00) Drug Screen, Random Urine (10/01/17 06:06) Place In Observation (10/01/17 ) Vital Signs (Adult) Q4H (10/01/17 06:06) Diet Regular Basic (10/01/17 Breakfast) Sodium Chlor 0.9% 1000 Ml Inj (Ns 1000 M (10/01/17 06:06) Sodium Chloride 0.9% Flush (Ns Flush) (10/01/17 06:15) Sodium Chloride 0.9% Flush (Ns Flush) (10/01/17 09:00) Acetaminophen (Tylenol) (10/01/17 06:15) Comprehensive Metabolic Panel (10/02/17 06:00) Complete Blood Count With Diff (10/02/17 06:00) Case Management Consult (10/01/17 06:06) Naloxone Inj (Narcan Inj) (10/01/17 06:15) Docusate Sodium-Senna (Abigail-Colace) (10/01/17 09:00) Magnesium Hydroxide Liq (Milk Of Magnesi (10/01/17 06:15) Sennosides (Senokot) (10/01/17 06:15) Bisacodyl Supp (Dulcolax Supp) (10/01/17 06:15) Lactulose Liq (Lactulose Liq) (10/01/17 06:15) Admit Order (Ed Use Only) (10/01/17 06:38) Ondansetron Odt (Zofran Odt) (10/01/17 06:45) Labs Laboratory Tests Test 10/01/17 03:20 10/01/17 03:30 White Blood Count 12.3 TH/MM3 Red Blood Count 6.32 MIL/MM3 Hemoglobin 15.9 GM/DL Hematocrit 50.0 % Mean Corpuscular Volume 79.1 FL Mean Corpuscular Hemoglobin 25.2 PG Mean Corpuscular Hemoglobin Concent 31.9 % Red Cell Distribution Width 16.2 % Platelet Count 263 TH/MM3 Mean Platelet Volume 7.9 FL Neutrophils (%) (Auto) 85.8 % Lymphocytes (%) (Auto) 10.6 % Monocytes (%) (Auto) 3.2 % Eosinophils (%) (Auto) 0.0 % Basophils (%) (Auto) 0.4 % Neutrophils # (Auto) 10.6 TH/MM3 Lymphocytes # (Auto) 1.3 TH/MM3 Monocytes # (Auto) 0.4 TH/MM3 Eosinophils # (Auto) 0.0 TH/MM3 Basophils # (Auto) 0.0 TH/MM3 CBC Comment DIFF FINAL Differential Comment Prothrombin Time 11.1 SEC Prothromb Time International Ratio 1.1 RATIO Activated Partial Thromboplast Time 25.4 SEC Blood Urea Nitrogen 24 MG/DL Creatinine 2.66 MG/DL Random Glucose 201 MG/DL Total Protein 9.7 GM/DL Albumin 4.9 GM/DL Calcium Level 10.4 MG/DL Magnesium Level 2.3 MG/DL Alkaline Phosphatase 95 U/L Aspartate Amino Transf (AST/SGOT) 51 U/L Alanine Aminotransferase (ALT/SGPT) 108 U/L Total Bilirubin 1.0 MG/DL Sodium Level 127 MEQ/L Potassium Level 3.7 MEQ/L Chloride Level 87 MEQ/L Carbon Dioxide Level 24.3 MEQ/L Anion Gap 16 MEQ/L Estimat Glomerular Filtration Rate 27 ML/MIN Hemoglobin A1c 7.9 % C-Reactive Protein 4.20 MG/DL Lipase 54 U/L Urine Color DARK-YELLOW Urine Turbidity HAZY Urine pH 5.0 Urine Specific [place] 1.026 Urine Protein 100 mg/dL Urine Glucose (UA) TRACE mg/dL Urine Ketones TRACE mg/dL Urine Occult Blood MOD Urine Nitrite NEG Urine Bilirubin SMALL Urine Urobilinogen 4.0 MG/DL Urine Leukocyte Esterase SMALL Urine RBC /hpf Urine WBC 16 /hpf Urine Squamous Epithelial Cells 2 /hpf Urine Calcium Oxalate Crystals FEW /hpf Urine Bacteria OCC /hpf Urine Hyaline Casts INNUM /lpf Urine Mucus FEW /lpf Microscopic Urinalysis Comment CULTURE INDICATED Urine Opiates Screen POS Urine Barbiturates Screen NEG Urine Amphetamines Screen NEG Urine Benzodiazepines Screen NEG Urine Cocaine Screen POS Urine Cannabinoids Screen POS MDM Medical Decision Making Medical Screen Exam Complete: Yes Emergency Medical Condition: Yes Medical Record Reviewed: Yes Differential Diagnosis Bowel perforation, versus renal failure, versus kidney stone, versus pyelonephritis, versus colitis Narrative Course During the course of the patient's emergency department visit, the patient's history, examination, and differential diagnosis were reviewed with the patient. The patient was placed on a gambling monitor with oximetry and frequent blood pressure monitoring. The patient had IV access obtained and blood work sent for analysis. The patient was initially provided normal saline 1 L IV fluid bolus, hydromorphone 0.5 mg IV, Compazine 5 mg IV. The patient's laboratory studies were reviewed and remarkable for a white count of 12.3, hemoglobin 15.9, platelets 263 with 85.8 neutrophils, CMP is remarkable for a sodium of 127, chloride 87, anion gap 16, BUN 24, creatinine 2.66, glucose 201, calcium 10.4, AST 51, ALT 108, C-reactive protein 4.2, lipase 54, PT 11.1, PTT 25.4. Urine drug screen is positive for opiates, cocaine, cannabinoids, urinalysis shows 100 protein small bilirubin, 4 urobilinogen, small leukocyte Estrace, and innumerable RBCs, 6 days, occasional bacteria, culture indicated. Given the patient's abnormal urinalysis and elevated white with flank pain the patient had a CT scan of the abdomen and pelvis ordered. The patient was given broad-spectrum antibiotic coverage due to a concern for bacteremia from IV drug use which included Zosyn and vancomycin. Radiology studies were reviewed and remarkable for Last Impressions Abdomen/Pelvis CT 10/01/17 9714 Signed Impressions: CONCLUSION: 1. No calcified renal stones or hydronephrosis. 2. No new or significant changes compared to the recent prior study. Given the patient's acute renal failure, the patient will be admitted to the hospital for IV fluids and continued evaluation and treatment. The patient's results were discussed with the patient, including the plan of care. I explained that further testing and/ or monitoring is indicated based on the patient's history, examination, and/ or laboratory findings. Therefore, I recommended admission for additional evaluation. The patient expressed understanding and was agreeable with this plan. The patient was admitted to the hospital in guarded condition and sent to a bed under the care of the [facility] service. Sepsis Criteria SIRS Criteria (2 or more): Heart rate over 90, WBC > 46937, < 4000 or > 10% bands Sepsis Criteria (SIRS+source): Infect source susp/known Physician Communication Physician Communication The patient's case including history, pertinent physical examination findings, and laboratory studies were discussed with Dr. Colon. It was agreed that the patient would be admitted to the [facility] service. Diagnosis Primary Impression: ARF (acute renal failure) Qualified Codes: N17.9 - Acute kidney failure, unspecified Additional Impressions: Abdominal pain Qualified Codes: R10.84 - Generalized abdominal pain Polysubstance abuse Admitting Information Admitting Physician Requests: it Yarely Calabrese MD Oct 01, 2017 03:43
[2017-10-01] MEDS ORDERED: PROCHLORPERAZINE INJ 10 MG/2 ML VIAL IV PUSH ONE (03:45)
[2017-10-01] MEDS ORDERED: SODIUM CHLOR 0.9% 1000 ML INJ 1,000 ML IV ONE ×2 (03:45→04:45)
[2017-10-01] MEDS ORDERED: HYDROmorphone HCL PF 2 MG/ML VIAL IV PUSH ONE (03:45)
[2017-10-01 03:47] LABS: ALBUMIN 4.9 GM/DL (3.4-5.0); AST (GOT) 51 U/L (15-37); BICARBONATE 24.3 MEQ/L (21.0-32.0); BLOOD UREA NITROGEN 24 MG/DL (7-18); CALCIUM 10.4 MG/DL (8.5-10.1); CHLORIDE 87 MEQ/L (98-107); CREATININE 2.66 MG/DL (0.60-1.30); GLOMERULAR FILTRATION RATE 27 ML/MIN (>89); GLUCOSE,RANDOM 201 MG/DL (74-106); MAGNESIUM 2.3 MG/DL (1.5-2.5); SODIUM (NA) 127 MEQ/L (136-145)
[2017-10-01 03:48] LABS: ALT (GPT) 108 U/L (12-78)
[2017-10-01 03:50] LABS: ALKALINE PHOSPHATASE 95 U/L (45-117); TOTAL PROTEIN 9.7 GM/DL (6.4-8.2)
[2017-10-01 03:56] LABS: INTERNATIONAL NORMALIZED RATIO 1.1 RATIO; PROTHROMBIN TIME - PATIENT 11.1 SEC (9.8-11.6)
[2017-10-01 04:01] LABS: BACTERIA, URINE OCC /hpf; BILIRUBIN, URINE SMALL (NEG); BLOOD, URINE MOD (NEG); CALCIUM OXALATE CRYSTALS,URINE FEW /hpf; GLUCOSE,URINE TRACE mg/dL (NEG); HYALINE CAST, URINE INNUM /lpf (RARE); KETONE, URINE TRACE mg/dL (NEG); MUCUS URINE FEW /lpf (OCC); NITRITE,URINE NEG (NEG); SQUAMOUS EPITHELIAL CELL URINE 2 /hpf (0-5); URINE COLOR DARK-YELLOW (YELLW/STRAW); URINE LEUKOCYTE ESTERASE SMALL (NEG)
[2017-10-01] MEDS ORDERED: PIPERACIL-TAZO 3.375 GM PREMIX 50 ML IV ONE (04:45)
[2017-10-01] MEDS ORDERED: VANCOMYCIN INJ 1,000 MG in SODIUM CHLOR 0.9% 250 ML INJ 250 ML IV ONE (04:45)
--- NOTE | 2017-10-01 06:04 | RADRPT ---
EXAM DATE: 10/01/2017 5:15 AM EDT AGE/SEX: 37 years / Male INDICATIONS: Right flank pain. CLINICAL DATA: This is the patient's initial encounter. Patient reports that signs and symptoms have been present for 1 day and indicates a pain score of 10/10. MEDICAL/SURGICAL HISTORY: None. None. RADIATION DOSE: 8.11 CTDI (mGy) COMPARISON: [facility] [place], CT ABDOMEN & PELVIS W/O CONTRAST, 09/20/2017. . TECHNIQUE: Multiple contiguous axial images were obtained through the abdomen. Images were obtained using multiple row detector helical technique. Using dose reduction techniques, radiation dose was ke pt as low as reasonably achievable to obtain optimal diagnostic quality images. Lack of IV contrast l imits the diagnosis for certain organ pathology. FINDINGS: Lower Lungs: The visualized lower lungs are clear. Liver: The liver has a homogeneous density without space-occupying lesion. There is no dilation of th e biliary tree. Stable granulomas in the liver. Gallbladder grossly unremarkable. Spleen: Homogeneous density without enlargement. Pancreas: Unremarkable without mass or calcification. Kidneys: Normal in size and shape. No evidence of mass or hydronephrosis. No calcified renal stones. Stable probable cyst left kidney. Adrenal Glands: Unremarkable. Aorta: The aorta and proximal iliac vessels are grossly unremarkable without aneurysmal dilation. Bowel/Mesentery: The bowel loops are grossly unremarkable. The cecum and sigmoid colon have a normal configuration. The appendix is unremarkable. No inflammatory changes. Abdominal Wall: Intact. Retroperitoneum: No evidence of adenopathy in the retrocrural, para-aortic, or deep pelvic regions. Bladder: Contours are smooth. Reproductive Organs: No abnormal masses or calcifications seen. Inguinal: The inguinal region is unremarkable without evidence of adenopathy. Bony Structures: Unremarkable. CONCLUSION: 1. No calcified renal stones or hydronephrosis. 2. No new or significant changes compared to the recent prior study. Electronically signed by: Edgar Carbajal MD 10/01/2017 6:03 AM EDT
[2017-10-01] MEDS ORDERED: ACETAMINOPHEN 325 MG TAB PO PRN (06:15)
[2017-10-01] MEDS ORDERED: SENNOSIDES 8.6 MG TAB PO PRN (06:15)
[2017-10-01] MEDS ORDERED: MAGNESIUM HYDROXIDE SUSP 30 ML CUP PO PRN (06:15)
[2017-10-01] MEDS ORDERED: SODIUM CHLORIDE 0.9% FLUSH 10 ML FLUSH IV FLUSH PRN (06:15)
[2017-10-01] MEDS ORDERED: LACTULOSE SYRUP 20 GM/30 ML CUP PO PRN (06:15)
[2017-10-01] MEDS ORDERED: NALOXONE HCL 0.4 MG/ML AMP IV PUSH PRN (06:15)
[2017-10-01] MEDS ORDERED: BISACODYL 10 MG SUPP RECTAL PRN (06:15)
[2017-10-01] MEDS: SODIUM CHLOR 0.9% 1000 ML INJ 1,000 ML IV SCH ×3 (06:31→18:24)
[2017-10-01] MEDS ORDERED: ONDANSETRON ODT 4 MG TAB PO PRN (06:45)
[2017-10-01] MEDS ORDERED: PROCHLORPERAZINE INJ 10 MG/2 ML VIAL IV PUSH PRN (10:00)
--- NOTE | 2017-10-01 10:19 | HHI.HP ---
HPI Service [facility] Primary Care Physician No Primary Care Physician Admission Diagnosis Renal Failure, Sepsis Diagnoses: Chief Complaint: Abdominal pain Travel History International Travel<30 Days: No Contact w/Intl Traveler <30 Da: No Traveled to Known Affected Are: No History of Present Illness The patient is a 37-year-old male with no significant past medical history who is presenting to the hospital with abdominal pain and nausea and vomiting. The patient says that he was recently admitted to the hospital for the same thing. He says that the stomach pain is located in the right lower quadrant and then radiates to the left side and then moves around to both sides of the back. He describes the pain as severe in nature. He said that he threw up 9 times yesterday. He says that his symptoms are similar to his recent hospitalization. He says that he has been working outside [employer]. It has been quite hot and he has been dehydrated. He says that his abdominal pain is better. He would like to drink some tristen lian. Discussed with nursing. Review of Systems Except as stated in HPI: all other systems reviewed are Neg Past Family Social History Past Medical History The patient denies pertinent medical history Past Surgical History Left hand surgery Allergies: Coded Allergies: No Known Drug Allergies (Verified Allergy, Unknown, 10/01/17) Family History The patient denies pertinent family history Social History The patient smokes 5 cigarettes a day. He drinks alcohol twice a month. He says he stopped doing heroin. He recently used hydrocodone. The pt is homeless. He moved here from [place] about three weeks ago. Physical Exam Vital Signs Vital Signs Date Time Temp Pulse Resp B/P (MAP) Pulse Ox O2 Delivery O2 Flow Rate FiO2 10/01/17 09:39 97.8 78 20 111/62 (78) 95 10/01/17 08:12 10/01/17 07:30 89 15 136/75 (95) 98 Room Air 10/01/17 06:25 92 16 132/78 (96) 99 Room Air 10/01/17 03:32 97.9 10/01/17 01:20 104 18 137/76 (96) 96 Physical Exam GENERAL: This is a well-nourished, well-developed patient, in no apparent distress. SKIN: No rashes, ecchymoses or lesions. Cool and dry. HEAD: Atraumatic. Normocephalic. No temporal or scalp tenderness. EYES: Pupils equal round and reactive. Extraocular motions intact. No scleral icterus. No injection or drainage. ENT: Nose without bleeding, purulent drainage or septal hematoma. Throat without erythema, tonsillar hypertrophy or exudate. Uvula midline. Airway patent. NECK: Trachea midline. No JVD or lymphadenopathy. Supple, nontender, no meningeal signs. CARDIOVASCULAR: Regular rate and rhythm without murmurs, gallops, or rubs. RESPIRATORY: Clear to auscultation. Breath sounds equal bilaterally. No wheezes , rales, or rhonchi. GASTROINTESTINAL: Abdomen soft, tender in the right lower quadrant. No guarding. MUSCULOSKELETAL: Extremities without clubbing, cyanosis, or edema. No joint tenderness, effusion, or edema noted. NEUROLOGICAL: Awake and alert. Cranial nerves II through XII intact. Motor and sensory grossly within normal limits. Five out of 5 muscle strength in all muscle groups. Normal speech. Laboratory Laboratory Tests Test 10/01/17 03:20 10/01/17 03:30 White Blood Count 12.3 Red Blood Count 6.32 Hemoglobin 15.9 Hematocrit 50.0 Mean Corpuscular Volume 79.1 Mean Corpuscular Hemoglobin 25.2 Mean Corpuscular Hemoglobin Concent 31.9 Red Cell Distribution Width 16.2 Platelet Count 263 Mean Platelet Volume 7.9 Neutrophils (%) (Auto) 85.8 Lymphocytes (%) (Auto) 10.6 Monocytes (%) (Auto) 3.2 Eosinophils (%) (Auto) 0.0 Basophils (%) (Auto) 0.4 Neutrophils # (Auto) 10.6 Lymphocytes # (Auto) 1.3 Monocytes # (Auto) 0.4 Eosinophils # (Auto) 0.0 Basophils # (Auto) 0.0 CBC Comment DIFF FINAL Differential Comment Prothrombin Time 11.1 Prothromb Time International Ratio 1.1 Activated Partial Thromboplast Time 25.4 Blood Urea Nitrogen 24 Creatinine 2.66 Random Glucose 201 Total Protein 9.7 Albumin 4.9 Calcium Level 10.4 Magnesium Level 2.3 Alkaline Phosphatase 95 Aspartate Amino Transf (AST/SGOT) 51 Alanine Aminotransferase (ALT/SGPT) 108 Total Bilirubin 1.0 Sodium Level 127 Potassium Level 3.7 Chloride Level 87 Carbon Dioxide Level 24.3 Anion Gap 16 Estimat Glomerular Filtration Rate 27 C-Reactive Protein 4.20 Lipase 54 Urine Color DARK-YELLOW Urine Turbidity HAZY Urine pH 5.0 Urine Specific [place] 1.026 Urine Protein 100 Urine Glucose (UA) TRACE Urine Ketones TRACE Urine Occult Blood MOD Urine Nitrite NEG Urine Bilirubin SMALL Urine Urobilinogen 4.0 Urine Leukocyte Esterase SMALL Urine RBC Urine WBC 16 Urine Squamous Epithelial Cells 2 Urine Calcium Oxalate Crystals FEW Urine Bacteria OCC Urine Hyaline Casts INNUM Urine Mucus FEW Microscopic Urinalysis Comment CULTURE INDICATED Urine Opiates Screen POS Urine Barbiturates Screen NEG Urine Amphetamines Screen NEG Urine Benzodiazepines Screen NEG Urine Cocaine Screen POS Urine Cannabinoids Screen POS Date/Time Source Procedure Growth Status 10/01/17 03:30 Urine Random Urine Urine Culture Pending Received Result Diagram: 10/01/17 0320 10/01/17 0320 Imaging Last Impressions Abdomen/Pelvis CT 10/01/17 0437 Signed Impressions: CONCLUSION: 1. No calcified renal stones or hydronephrosis. 2. No new or significant changes compared to the recent prior study. Caprini VTE Risk Assessment Caprini VTE Risk Assessment: Mod/High Risk (score >= 2) Caprini Risk Assessment Model Point Value = 1 Point Value = 2 Point Value = 3 Point Value = 5 Age 41-60 Minor surgery BMI > 25 kg/m2 Swollen legs Varicose veins or History of unexplained or recurrent spontaneous Oral contraceptives or hormone replacement Sepsis (< 1 month) Serious lung disease, including pneumonia (< 1 month) Abnormal pulmonary function Acute myocardial infarction Congestive heart failure (< 1 month) History of inflammatory bowel disease Medical patient at bed rest Age 61-74 Arthroscopic surgery Major open surgery (> 45 min) Laparoscopic surgery (> 45 min) Malignancy Confined to bed (> 72 hours) Immobilizing plaster cast Central venous access Age >= 75 History of VTE Family history of VTE Factor V Leiden Prothrombin [id number] Lupus anticoagulant Anticardiolipin antibodies Elevated serum homocysteine Heparin-induced thrombocytopenia Other congenital or acquired thrombophilia Stroke (< 1 month) Elective arthroplasty Hip, pelvis, or leg fracture Acute spinal cord injury (< 1 month) Prophylaxis Regimen Total Risk Factor Score Risk Level Prophylaxis Regimen 0-1 Low Early ambulation 2 Moderate Order ONE of the following: *Sequential Compression Device (SCD) *Heparin 5000 units SQ BID 3-4 Higher Order ONE of the following medications: *Heparin 5000 units SQ TID *Enoxaparin/Lovenox 40 mg SQ daily (WT < 150 kg, CrCl > 30 mL/min) *Enoxaparin/Lovenox 30 mg SQ daily (WT < 150 kg, CrCl > 10-29 mL/min) *Enoxaparin/Lovenox 30 mg SQ BID (WT < 150 kg, CrCl > 30 mL/min) AND/OR *Sequential Compression Device (SCD) 5 or more Highest Order ONE of the following medications: *Heparin 5000 units SQ TID (Preferred with Epidurals) *Enoxaparin/Lovenox 40 mg SQ daily (WT < 150 kg, CrCl > 30 mL/min) *Enoxaparin/Lovenox 30 mg SQ daily (WT < 150 kg, CrCl > 10-29 mL/min) *Enoxaparin/Lovenox 30 mg SQ BID (WT < 150 kg, CrCl > 30 mL/min) AND *Sequential Compression Device (SCD) Assessment and Plan Assessment and Plan Abdominal pain/ N/V The patient was recently admitted for the same thing. LFTs slightly elevated. CT scan of the abdomen was unremarkable. Symptoms seem to be improving. - Tylenol and antiemetics as needed. - PPI. - GI consult if symptoms persist. - IVFs. - ADAT. - check a hepatitis profile. Acute renal failure Suspect prerenal. 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 - IVFs. - follow BMP. - avoid nephrotoxins. Leukocytosis/ UTI UA indicative of infection. - continue IV ceftriaxone. - follow urine culture. Hyponatremia Suspect hypovolemic. - IVFs. - follow BMP. Hyperglycemia May be a stress response. - check an A1c. Narcotic abuse/ tobacco dependence Tox screen positive for opiates, cocaine and marijuana. - cessation instruction. PPx: SCDs Discussed Condition With Pt, nurse Physician Certification 2 Midnight Certification Type: Admission for Inpatient Services Order for Inpatient Services The services are ordered in accordance with Medicare regulations or non- Medicare payer requirements, as applicable. In the case of services not specified as inpatient-only, they are appropriately provided as inpatient services in accordance with the 2-midnight benchmark. Estimated LOS (days): 2 days is the estimated time the patient will need to remain in the hospital, assuming treatment plan goals are met and no additional complications. Post-Hospital Plan: Home Kye Sexton DO Oct 01, 2017 10:19
[2017-10-01] MEDS: SODIUM CHLORIDE 0.9% FLUSH 10 ML FLUSH IV FLUSH SCH ×2 (11:29→21:00)
[2017-10-01 11:35] LABS: ALBUMIN 3.3 GM/DL (3.4-5.0); ALKALINE PHOSPHATASE 65 U/L (45-117); ALT (GPT) 76 U/L (12-78); AST (GOT) 36 U/L (15-37); BICARBONATE 28.4 MEQ/L (21.0-32.0); BLOOD UREA NITROGEN 18 MG/DL (7-18); CALCIUM 8.8 MG/DL (8.5-10.1); CHLORIDE 93 MEQ/L (98-107); CREATININE 1.38 MG/DL (0.60-1.30); GLOMERULAR FILTRATION RATE 58 ML/MIN (>89); GLUCOSE,RANDOM 228 MG/DL (74-106); SODIUM (NA) 133 MEQ/L (136-145); TOTAL BILIRUBIN ADULT 0.8 MG/DL (0.2-1.0); TOTAL PROTEIN 6.9 GM/DL (6.4-8.2)
[2017-10-01] MEDS: DOCUSATE SODIUM 50 MG/SENNA 8.6 MG TAB PO SCH ×2 (11:36→21:00)
[2017-10-01] MEDS: PANTOPRAZOLE SOD 40 MG DELAYED RELEASE TAB PO SCH (11:36)
[2017-10-01] MEDS: cefTRIAXone INJ 1,000 MG in SODIUM CHLORIDE 0.9% INJ 100 ML IV SCH (11:37)
[2017-10-01 17:00] LABS: HEMOGLOBIN A1C 7.9 % (4.3-6.0)
[2017-10-02] VITALS: BP 118/60; PULSE 72; RESP 20; TEMP 98.2; O2SAT 98
[2017-10-02 08:00] VITALS: BP 123/77; PULSE 71; RESP 14; TEMP 98; O2SAT 98
[2017-10-02] MEDS ORDERED: metFORMIN HCL 850 MG TAB PO SCH (09:00)
[2017-10-02] MEDS: SODIUM CHLORIDE 0.9% FLUSH 10 ML FLUSH IV FLUSH SCH (09:00)
[2017-10-02 09:03] LABS: AUTOMATED NEUTROPHIL # 6.7 TH/MM3 (1.8-7.7); BASOPHIL % 0.3 % (0.0-2.0); EOSINOPHIL % 0.5 % (0.0-4.0); HEMATOCRIT 40.1 % (39.0-51.0); LYMPH % 19.8 % (9.0-44.0); LYMPHOCYTE # 1.8 TH/MM3 (1.0-4.8); MEAN CELL VOLUME 79.3 FL (80.0-100.0); MEAN CORPUSCULAR HEMOGLOBIN 25.6 PG (27.0-34.0); MEAN CORPUSCULAR HGB CONC 32.3 % (32.0-36.0); MEAN PLATELET VOLUME 8.1 FL (7.0-11.0); MONO % 5.9 % (0.0-8.0); MONOCYTE # 0.5 TH/MM3 (0-0.9); NEUT % 73.5 % (16.0-70.0); PLATELET COUNT 210 TH/MM3 (150-450); RED BLOOD COUNT 5.06 MIL/MM3 (4.50-5.90); RED CELL DISTRIBUTION WIDTH 15.9 % (11.6-17.2); WHITE BLOOD COUNT 9.2 TH/MM3 (4.0-11.0)
[2017-10-02 09:16] LABS: ALBUMIN 3.2 GM/DL (3.4-5.0); ALT (GPT) 75 U/L (12-78); AST (GOT) 45 U/L (15-37); BICARBONATE 25.4 MEQ/L (21.0-32.0); BLOOD UREA NITROGEN 11 MG/DL (7-18); CALCIUM 8.6 MG/DL (8.5-10.1); CHLORIDE 103 MEQ/L (98-107); CREATININE 0.83 MG/DL (0.60-1.30); GLOMERULAR FILTRATION RATE 104 ML/MIN (>89); GLUCOSE,RANDOM 151 MG/DL (74-106); SODIUM (NA) 138 MEQ/L (136-145)
[2017-10-02 09:28] LABS: ALKALINE PHOSPHATASE 60 U/L (45-117); TOTAL BILIRUBIN ADULT 0.7 MG/DL (0.2-1.0); TOTAL PROTEIN 6.4 GM/DL (6.4-8.2)
[2017-10-02 10:55] VITALS: BP 121/73; PULSE 75; RESP 14; TEMP 98.2; O2SAT 97
--- NOTE | 2017-10-02 11:57 | HHI.PR ---
Subjective Remarks Follow-up newly diagnosed diabetes type 2/gastroparesis/sepsis/acute kidney injury October 02, 2017-patient seen and examined, states still have episode of nausea however emesis resolved as patient was able to tolerate last night BU. Discussed with patient's regarding new diagnosis of diabetes type 2. Patient reports an admission to illicit drug intake including heroin, marijuana. Objective Vitals Vital Signs Date Time Temp Pulse Resp B/P (MAP) Pulse Ox O2 Delivery O2 Flow Rate FiO2 10/02/17 10:55 98.2 75 14 121/73 (89) 97 10/02/17 08:00 98.0 71 14 123/77 (92) 98 10/02/17 00:00 98.2 72 20 118/60 (79) 98 10/01/17 20:00 98.2 77 20 125/72 (89) 96 10/01/17 16:00 97.4 78 20 130/65 (86) 95 10/01/17 12:00 96.7 86 20 122/61 (81) 98 I/O 10/01/17 10/01/17 10/01/17 10/02/17 10/02/17 10/02/17 07:00 15:00 23:00 07:00 15:00 23:00 Intake Total 200 ml 1000 ml Balance 200 ml 1000 ml Intake Oral 200 ml 200 ml IV Total 800 ml Result Diagram: 10/02/17 0811 10/02/17 0811 Imaging Last Impressions Abdomen/Pelvis CT 10/01/17 0437 Signed Impressions: CONCLUSION: 1. No calcified renal stones or hydronephrosis. 2. No new or significant changes compared to the recent prior study. Objective Remarks GENERAL: NAD SKIN: Warm and dry. HEAD: Normocephalic. EYES: No scleral icterus. No injection or drainage. NECK: Supple, trachea midline. No JVD or lymphadenopathy. CARDIOVASCULAR: Regular rate and rhythm without murmurs, gallops, or rubs. RESPIRATORY: Breath sounds equal bilaterally. No accessory muscle use. GASTROINTESTINAL: Abdomen soft, non-tender, nondistended. MUSCULOSKELETAL: No cyanosis, or edema. BACK: Nontender without obvious deformity. No CVA tenderness. A/P Problem List: (1) Diabetic gastropathy ICD Code: E11.69 - Type 2 diabetes mellitus with other specified complication; K31.9 - Disease of stomach and duodenum, unspecified (2) Gastroparesis diabeticorum ICD Code: E11.43 - Type 2 diabetes mellitus with diabetic autonomic (poly) neuropathy; K31.84 - Gastroparesis (3) Newly diagnosed diabetes ICD Code: E11.9 - Type 2 diabetes mellitus without complications (4) ARF (acute renal failure) ICD Code: N17.9 - Acute kidney failure, unspecified (5) Sepsis ICD Code: A41.9 - Sepsis, unspecified organism (6) Hepatitis C antibody test positive ICD Code: R76.8 - Other specified abnormal immunological findings in serum Assessment and Plan 37-year-old man with Abdominal pain/ N/V Due to diabetes, gastroparesis Continue IV fluid and advance diet as tolerated Acute renal failure Suspect prerenal. 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 -Resolved with IVFs. - avoid nephrotoxins. Sepsis /leukocytosis/ UTI UA indicative of infection. -Currently on IV ceftriaxone pending culture. Hyponatremia Suspect hypovolemic versus hyperglycemia. -Resolved with IVFs. 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 -Start nicotine patch -cessation instruction. PPx: SCDs Discharge Planning Discharge patient to home Condition on discharge: Improved ADA Diet as tolerated Ad Gianna activity Rx written: See EMR Follow-up with primary care physician in 1 to Donal Dougherty MD Oct 02, 2017 11:57
[2017-10-02] MEDS ORDERED: METOCLOPRAMIDE HCL 10 MG TAB PO SCH (12:00)
[2017-10-02] MEDS: DOCUSATE SODIUM 50 MG/SENNA 8.6 MG TAB PO SCH (12:20)
[2017-10-02] MEDS: PANTOPRAZOLE SOD 40 MG DELAYED RELEASE TAB PO SCH (12:20)
[2017-10-02] MEDS: cefTRIAXone INJ 1,000 MG in SODIUM CHLORIDE 0.9% INJ 100 ML IV SCH (12:20)
[2017-10-02] MEDS ORDERED: metFORMIN HCL 850 MG TAB PO ONE (13:15)
[2017-10-02] MEDS ORDERED: METF850 PO (13:28)
[2017-10-02] MEDS ORDERED: METO10TA PO (13:28)
[2017-10-02] MEDS ORDERED: NOVOLOGP2 SQ (13:28)
[2017-10-02] MEDS ORDERED: BLOOD GLUCOSE M1 KIT (13:32)
[2017-10-02] MEDS ORDERED: INSU-116 (13:32)
[2017-10-02] MEDS ORDERED: INSU-92 (13:32)
[2017-10-02] MEDS ORDERED: GLUCTES12 (13:32)
== END 2017-10-02 15:03 | disposition home or self-care (01) | DRG 872 ==
LOC: NEPC 01:10 → NEDA 06:39 → NEPHCDU 08:27 → OBSVTOIN 10:03
PROVIDERS: ADMIT Hospitalist; ATTEND Hospitalist
DX: A41.9 Sepsis, unspecified organism (principal); N17.9 Acute kidney failure, unspecified; E87.1 Hypo-osmolality and hyponatremia; E11.42 Type 2 diabetes mellitus with diabetic polyneuropathy; E11.65 Type 2 diabetes mellitus with hyperglycemia; K31.84 Gastroparesis; N39.0 Urinary tract infection, site not specified; E86.0 Dehydration; E86.1 Hypovolemia; E11.69 Type 2 diabetes mellitus with other specified complication; F11.10 Opioid abuse, uncomplicated; K31.9 Disease of stomach and duodenum, unspecified; F32.9 Major depressive disorder, single episode, unspecified; F17.210 Nicotine dependence, cigarettes, uncomplicated; Z59.0 Homelessness
CPT/HCPCS: 74176; 80053; 80074; 80307; 81001; 82948; 83036; 83690; 83735; 85025; 85610; 85730; 86140; 87086; J0696; J0780; J1170; J2543; J3370; J7030; J7050